=== PATIENT | male | born 1955 | race Caucasian/White ===

== ENCOUNTER 2018-05-29 20:59 | Emergency (ER) | payer BC, OTHER ==
[2018-05-29 21:16] VITALS: BP 152/88; PULSE 100; TEMP 98.8; BMI 28.3
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
[2018-05-29] MEDS ORDERED: DIPHTH,PERTUSS(ACELL),TET 0.5 ML DISP.SYRIN IM ONE (23:31)
== END 2018-05-29 23:48 | disposition home or self-care (01) ==
LOC: JER 20:59 → JERFT 20:59 → JER 23:48
PROC: 3E0234Z Introduction of Serum, Toxoid and Vaccine into Muscle, Percutaneous Approach (ICD-10-PCS; principal; 2018-05-29)
DX: S02.2XXB Fracture of nasal bones, initial encounter for open fracture (principal); Y00.XXXA Assault by blunt object, initial encounter; Y93.89 Activity, other specified; Y92.89 Other specified places as the place of occurrence of the external cause; Y99.8 Other external cause status; Y07.410 Brother, perpetrator of maltreatment and neglect
CPT/HCPCS: 70450-TC; 70486-TC; 90715; 99281-25